=== PATIENT | male | born 1975 | race Caucasian/White ===

== ENCOUNTER 2017-07-20 06:17 | Day surgery (SDC) | payer BC ==
[~2017-07-20] VITALS: Ht 188 cm; Wt 199.0 kg
[~2017-07-20 06:17] MED LIST: EPINEPHRINE 1 MG/ML, 1ML ONE; LIDOCAINE/PF 1%, 30ML ONE; ROPIvacaine/PF 0.5%, 30 ML ONE
[2017-07-20 06:35] VITALS: BP 124/71
[2017-07-20] MEDS ORDERED: FUROSEMIDE (06:41)
[2017-07-20] MEDS ORDERED: IBUPROFEN (06:41)
[2017-07-20] MEDS ORDERED: LOSARTAN (06:41)
[2017-07-20] MEDS ORDERED: ALLOPURINOL PO (06:41)
[2017-07-20] MEDS ORDERED: FENTANYL PF 100 MCG/2ML ONE ×3 (07:07→10:05)
[2017-07-20] MEDS ORDERED: LACTATED RINGERS 1,000 ML IV SCH (07:07)
[2017-07-20] MEDS ORDERED: MIDAZOLAM 1 MG/ML, 2ML ONE (07:07)
[2017-07-20] MEDS ORDERED: PROPOFOL 10 MG/ML, 20ML ONE ×2 (07:12→07:52)
[2017-07-20] MEDS ORDERED: DEXAMETHASONE 4 MG/ML, 1ML ONE (07:12)
[2017-07-20] MEDS ORDERED: ONDANSETRON 2MG/ML, 2ML ONE (07:12)
[2017-07-20] MEDS ORDERED: BUPIVACAINE/PF 0.5% ONE (07:12)
[2017-07-20] MEDS ORDERED: CEFAZOLIN 1,000 MG ONE ×2 (07:12→07:14)
[2017-07-20] MEDS ORDERED: LOSA100T6 PO (07:17)
[2017-07-20] MEDS ORDERED: ALLO300T PO (07:17)
[2017-07-20] MEDS ORDERED: FURO20TA3 PO (07:17)
[2017-07-20] MEDS ORDERED: IBUP-11 PO (07:17)
[2017-07-20] MEDS ORDERED: CARV6.2512 PO (07:17)
[2017-07-20] MEDS ORDERED: SPIR25TA3 PO (07:17)
[2017-07-20] MEDS ORDERED: LIDOCAINE GEL 2%, 5ML ONE (07:20)
[2017-07-20 07:52] LABS: ASPARTATE AMINO TRANSFERASE 19 U/L (15-37); BLOOD UREA NITROGEN 21 mg/dL (7-18)
[2017-07-20] MEDS ORDERED: SUCCINYLCHOLINE 20 MG/ML, 10ML ONE (07:52)
[2017-07-20] MEDS ORDERED: PHENYLEPHRINE 10 MG/ML ONE (07:52)
[2017-07-20] MEDS ORDERED: EPHEDRINE 50 MG/ML, 1ML ONE (07:52)
[2017-07-20] MEDS ORDERED: LIDOCAINE-MPF 2% ,5ML ONE (08:15)
[2017-07-20] MEDS ORDERED: MEPERIDINE/PF 25MG/0.5ML IVPush PRN (08:30)
[2017-07-20] MEDS ORDERED: LABETALOL 5MG/ML, 20ML IV PRN (08:30)
[2017-07-20] MEDS ORDERED: LORazepam 2 MG/ML, 1ML IVPush PRN (08:30)
[2017-07-20] MEDS ORDERED: MIDAZOLAM 1 MG/ML, 2ML IV PRN (08:30)
[2017-07-20] MEDS ORDERED: EPHEDRINE 50 MG/ML, 1ML IVPush PRN (08:30)
[2017-07-20] MEDS ORDERED: ONDANSETRON 2MG/ML, 2ML IVPush PRN (08:30)
[2017-07-20] MEDS ORDERED: hydrALAzine 20 MG/ML, 1ML IV PRN (08:30)
[2017-07-20] MEDS ORDERED: DIAZEPAM 5 MG/ML, 2ML IVPush PRN (08:30)
[2017-07-20] MEDS ORDERED: FENTANYL PF 100 MCG/2ML IV PRN (08:30)
[2017-07-20] MEDS ORDERED: METOCLOPRAMIDE 5 MG/ML, 2ML IV PRN (08:30)
[2017-07-20] MEDS ORDERED: OXYcodone 5 MG/5 ML ORAL.SOL UDC PO PRN (08:30)
[2017-07-20] MEDS ORDERED: PROMETHAZINE 25 MG/ML, 1ML IV PRN (08:30)
[2017-07-20] MEDS ORDERED: HYDROmorphone 1 MG/ML, 1ML IV PRN (08:30)
[2017-07-20] MEDS ORDERED: ALBUTEROL/IPRATROPIUM 2.5MG/0.5MG, 3 ML NPPB PRN (09:00)
[2017-07-20] MEDS ORDERED: ACETAMINOPHEN 325 MG TABLET PO PRN (09:00)
[2017-07-20] MEDS ORDERED: ACETAMINOPHEN 650 MG/20.3 ML UDC ONE (10:04)
[2017-07-20] MEDS ORDERED: MEPERIDINE/PF 25MG/0.5ML ONE (10:05)
[2017-07-20] MEDS ORDERED: OXYcodone 5 MG/5 ML ORAL.SOL UDC ONE (10:06)
== END 2017-07-20 11:55 ==
LOC: OUT 06:17
PROVIDERS: ATTEND Orthopaedic Surgery
DX: S83.512A Sprain of anterior cruciate ligament of left knee, initial encounter (principal); S83.242A Other tear of medial meniscus, current injury, left knee, initial encounter; S83.282A Other tear of lateral meniscus, current injury, left knee, initial encounter; M65.862 Other synovitis and tenosynovitis, left lower leg; E66.01 Morbid (severe) obesity due to excess calories; I10 Essential (primary) hypertension; Z68.43 Body mass index [BMI] 50.0-59.9, adult; Z88.6 Allergy status to analgesic agent; Z87.39 Personal history of other diseases of the musculoskeletal system and connective tissue; X58.XXXA Exposure to other specified factors, initial encounter; Y93.89 Activity, other specified; Y92.89 Other specified places as the place of occurrence of the external cause; Y99.8 Other external cause status
CPT/HCPCS: 29880; 29888; 36415; 73560; 76000; 80053; 85610; 85730; 93005; C1713; C1762; J0171; J0330; J0690; J1100; J2175; J2250; J2370; J2405; J2704; J2795; J3010; J3490; J7120